=== PATIENT | male | born 1975 | race Caucasian/White ===

== ENCOUNTER 2017-05-31 13:02 | Emergency (ER) | payer SELFPAY ==
[2017-05-31 13:04] VITALS: BP 143/101; PULSE 94; RESP 18; TEMP 98.6; O2SAT 98
[2017-05-31] MEDS ORDERED: SODIUM CHLOR 0.9% 1000 ML INJ 1,000 ML IV ONE (13:45)
[2017-05-31] MEDS ORDERED: MORPHINE SULFATE 4 MG/ML INJ IV PUSH ONE (13:45)
[2017-05-31] MEDS ORDERED: ORPHENADRINE INJ 60 MG/2 ML AMP IM ONE (13:45)
--- NOTE | 2017-05-31 13:59 | PD ---
HPI Chief Complaint: Back/ Neck Pain or Injury Time Seen by Provider: 13:16 Travel History International Travel<30 days: No Contact w/Intl Traveler<30days: No Traveled to known affect area: No History of Present Illness HPI 42-year-old male with PMH of degenerative disc disease presents to the ED for evaluation of 4 day history of 10/10 low back pain. Constant in nature with cramping episodes. Gradual onset. Radiating down the thighs. Accompanied by weakness of the lower extremities. Worsened by certain motions. Patient endorses pins and needles in bilateral feet, weakness and feeling as if his legs will give way. He denies saddle anesthesia or urinary/fecal incontinence. He states that he attempted to have a bowel movement today but the effort to bear down and was too painful. He recently started a new job that requires lifting and bending. He can identify no acute injury. He treated at home with "handfuls" of ibuprofen, Tylenol and "about 15 aspirin" with no improvement of symptoms. He denies any history of IVDA. PFSH Past Medical History Medical History: Denies Significant Hx Past Surgical History Thoracic Surgery: Yes (CHEST TUBE ) Social History Alcohol Use: Yes (OCC) Tobacco Use: Yes Substance Use: No Allergies-Medications (Allergen,Severity, Reaction): Coded Allergies: No Known Allergies (Unverified , 05/31/17) Reported Meds & Prescriptions Reported Meds & Active Scripts Active Ibuprofen 800 Mg Tab 800 Mg PO Q8H PRN Flexeril (Cyclobenzaprine HCl) 10 Mg Tab 10 Mg PO TID Review of Systems Except as stated in HPI: all other systems reviewed are Neg Physical Exam Narrative GENERAL: Well-nourished, well-developed white male in no acute distress. SKIN: Focused skin assessment warm/dry. HEAD: Normocephalic. EYES: No scleral icterus. No injection or drainage. NECK: Supple, trachea midline. No JVD or lymphadenopathy. CARDIOVASCULAR: Regular rate and rhythm without murmurs, gallops, or rubs. RESPIRATORY: Breath sounds equal bilaterally. No accessory muscle use. GASTROINTESTINAL: Abdomen soft, non-tender, nondistended. RECTAL EXAM: No masses or tenderness, stool is brown. Strong rectal tone. MUSCULOSKELETAL: No cyanosis, or edema. NEUROLOGICAL: 5/5 muscle strength of dorsiflexion, plantar flexion, knee and hip flexion bilaterally. Straight leg raise positive bilaterally. Sensation equal to light touch of the BLE distally. BACK: No obvious deformity. Tender to palpation in the midline of the lumbar area. Positive tenderness to palpation of the paraspinal musculature in the lumbar area with active spasming across the back bilaterally. No CVA tenderness. Data Data Last Documented VS Vital Signs Date Time Temp Pulse Resp B/P (MAP) Pulse Ox O2 Delivery O2 Flow Rate FiO2 05/31/17 13:04 98.6 94 18 143/101 (115) 98 Room Air Orders Orders Ct Lumb Spine W/O Contrast (05/31/17 13:35) ^ Insert Iv (05/31/17 13:35) Sodium Chlor 0.9% 1000 Ml Inj (Ns 1000 M (05/31/17 13:45) Orphenadrine Inj (Norflex Inj) (05/31/17 13:45) Morphine Inj (Morphine Inj) (05/31/17 13:45) Mandatory Outpatient Referral (05/31/17 15:48) Ed Discharge Order (05/31/17 15:48) MDM Medical Decision Making Medical Screen Exam Complete: Yes Emergency Medical Condition: Yes Differential Diagnosis Acute exacerbation of low back pain versus radiculopathy versus degenerative disc disease versus cauda equina syndrome versus other Narrative Course 42-year-old male with PMH of degenerative disc disease presents to the ED for evaluation of 4 day history of 10/10 low back pain. Constant in nature with cramping episodes. Radiating down the thighs. Accompanied by weakness of the lower extremities. Patient endorses pins and needles in bilateral feet, weakness and feeling as if his legs will give way. He denies saddle anesthesia or urinary/fecal incontinence. He states that he attempted to have a bowel movement today but the effort to bear down and was too painful. He recently started a new job that requires lifting and bending. He treated at home with "handfuls" of ibuprofen, Tylenol and "about 15 aspirin" with no improvement of symptoms. He denies any history of IVDA. Vitals reviewed. Physical exam reveals midline tenderness to palpation in the lumbar spine as well as the paraspinal musculature bilaterally. Rectal tone is strong. No strength deficit in the bilateral lower extremities. IV was established. Patient was administered 4 mg morphine and 1 L normal saline IV. He was administered [address] of the lumbar spine reveals moderate to large disc protrusion at L4 5. I discussed the results of the workup with the patient. He is noted to ambulate normally to the bathroom. He reports improvement of his symptoms. I placed a mandatory outpatient consult with neurology. I explained this process to the patient. He is prescribed a short course of anti-inflammatories and muscle relaxants, instructed to return to normal, gentle activity as tolerated, follow up as discussed. He indicated understanding of the instructions and is agreeable the care plan. He is stable and discharged home. Diagnosis Primary Impression: Acute exacerbation of chronic low back pain Additional Impressions: Muscle spasm of back Protrusion of lumbar intervertebral disc Referrals: Isael Aparicio MD Patient Instructions: Chronic Back Pain (ED), General Instructions, Lumbar Disc Herniation (ED) Additional Instructions: Rest, hydrate. Return to normal, gentle activity as tolerated. A mixture of rest and activity as best for back pain. Take medications as they're prescribed. A mandatory outpatient consult was placed on your behalf. The neurologist office will be in touch with you in the next week to schedule an appointment. Follow-up with the neurologist. Return to the ED for any urgent or emergent medical condition. Med/Other Pt SpecificInfo: Prescription(s) given Scripts Ibuprofen (Ibuprofen) 800 Mg Tab 800 MG PO Q8H Y for Pain/Inflammation, #15 TAB 0 Refills Prov: Darrian Lang MD 05/31/17 Cyclobenzaprine (Flexeril) 10 Mg Tab 10 MG PO TID for Muscle Spasm, #15 TAB 0 Refills Prov: Darrian Lang MD 05/31/17 Disposition: 01 DISCHARGE HOME Condition: Stable Donna Vasquez May 31, 2017 13:59
--- NOTE | 2017-05-31 15:31 | RADRPT ---
EXAM DATE/TIME: 05/31/2017 15:02 [place] COMPARISON: No previous studies available for comparison. INDICATIONS : Low back pain since Monday, RADIATION DOSE: 35.86 CTDIvol (mGy) MEDICAL HISTORY : None SURGICAL HISTORY : None. ENCOUNTER: Initial ACUITY: 4 - 6 days PAIN SCALE: 8/10 LOCATION: low back TECHNIQUE: Volumetric scanning of the lumbar spine was performed. Multiplanar reconstructions in the sagittal, coronal and oblique axial planes were performed. Using automated exposure control and adjustment of the mA and/or kV according to patient size, radiation dose was kept as low as reasonably achievable t o obtain optimal diagnostic quality images. DICOM format image data is available electronically for review and comparison. FINDINGS: VERTEBRAE: Normal vertebral body height. ALIGNMENT: No evidence of subluxation. T12-L1: The thecal sac has a normal diameter. No evidence of disc bulge or protrusion. The neural foramina are patent bilaterally. L1-L2: The thecal sac has a normal diameter. No evidence of disc bulge or protrusion. The neural foramina are patent bilaterally. L2-L3: The thecal sac has a normal diameter. No evidence of disc bulge or protrusion. The neural foramina are patent bilaterally. L3-L4: The thecal sac has a normal diameter. No evidence of disc bulge or protrusion. The neural foramina are patent bilaterally. L4-L5: Disc space narrowing with mild endplate sclerosis is noted. There is a moderate to large central and right paracentral disc protrusion with significant epidural and right foraminal effacement. L5-S1: The thecal sac has a normal diameter. No evidence of disc bulge or protrusion. The neural foramina are patent bilaterally. CONCLUSION: 1. Moderate to large sized central and right paracentral disc protrusion at L4-5. 2. Mild degenerative changes L4-5. 3. No acute bony abnormality. Wang Sultana MD on May 31, 2017 at 15:18 Board Certified Radiologist. This report was verified electronically.
[2017-05-31] MEDS ORDERED: CYCL10TA PO (15:44)
[2017-05-31] MEDS ORDERED: IBUP1TAB7 PO (15:44)
[2017-05-31] MEDS ORDERED: ACETAMINOPHEN/HYDROcodone 325 MG/10 MG TAB PO ONE (16:15)
[2017-05-31 16:17] VITALS: BP 122/89; PULSE 71; RESP 17; O2SAT 100
== END 2017-05-31 17:48 | disposition home or self-care (01) ==
LOC: NEPC 13:02
DX: M51.26 Other intervertebral disc displacement, lumbar region (principal); G89.29 Other chronic pain; M62.830 Muscle spasm of back; Z72.0 Tobacco use
CPT/HCPCS: 72131; 96360; 96361; 96372; 99285; J2360; J7030

== ENCOUNTER 2017-11-08 11:50 | Emergency (ER) | payer SELFPAY ==
[~2017-11-08] VITALS: Ht 182.9 cm; Wt 90.0 kg
[~2017-11-08 11:50] MED LIST: CYCL10TA PO; IBUP1TAB7 PO
[2017-11-08 11:58] VITALS: BP 137/82; PULSE 75; RESP 18; TEMP 98.3; O2SAT 99
[2017-11-08 12:13] VITALS: BP 140/84; PULSE 82; RESP 18; O2SAT 99
[2017-11-08] MEDS ORDERED: MORPHINE SULFATE 4 MG/ML INJ IV PUSH ONE (12:30)
[2017-11-08] MEDS ORDERED: DEXAMETHASONE SOD PHOS 20 MG/5 ML VIAL IV PUSH ONE (12:30)
--- NOTE | 2017-11-08 13:18 | PD ---
HPI Chief Complaint: Numbness/Tingling Time Seen by Provider: 12:12 Travel History International Travel<30 days: No Contact w/Intl Traveler<30days: No Traveled to known affect area: No History of Present Illness HPI Patient is a 42-year-old male presenting to emerge from for evaluation of back pain. Patient states he has a chronic history of the same however for the last 3-4 days the pain has gotten worse, he reports that when he got out of bed this morning his legs gave out and he fell to the floor. He then reported that he got off the wrong. While coming to the hospital and while he was attempting to walk here his legs gave out once again. He reports the pain is constant, he describes it as pins and needles, sharp and radiating down his legs. The pain is a 6 out of 10. Patient states he has been taking 10 acetaminophen tablets, he then clarified that he was not taking them all at once. These do not help his pain. He denies any bladder or bowel incontinence, no saddle paresthesia. He further denies any IV drug use but states he took his friend's methadone which helped his pain significantly. [facility] Past Medical History Medical other: Yes (chronic back pain) Tetanus Vaccination: Unknown Influenza Vaccination: No ?: Not Past Surgical History Thoracic Surgery: Yes (CHEST TUBE ) Tonsillectomy: Yes Social History Alcohol Use: Yes ([facility]) Tobacco Use: Yes Substance Use: No Allergies-Medications (Allergen,Severity, Reaction): Coded Allergies: No Known Allergies (Unverified , 11/08/17) Reported Meds & Prescriptions Reported Meds & Active Scripts Active Review of Systems Except as stated in HPI: all other systems reviewed are Neg HENT: No: Headaches Cardiovascular: No: Chest Pain or Discomfort Respiratory: No: Shortness of Breath Genitourinary: No: Incontinence Musculoskeletal: Positive: Pain Neurologic: Positive: Paresthesia, Sensory Disturbance, No: Focal Abnormalities Physical Exam Narrative GENERAL: Well-developed, well-nourished, alert male. Presenting in no acute distress. SKIN: Warm and dry. HEAD: Atraumatic. Normocephalic. EYES: Pupils equal and round. No scleral icterus. No injection or drainage. ENT: No nasal bleeding or discharge. Mucous membranes pink and moist. NECK: Trachea midline. No JVD. CARDIOVASCULAR: Regular rate and rhythm. RESPIRATORY: No accessory muscle use. Clear to auscultation. Breath sounds equal bilaterally. GASTROINTESTINAL: Abdomen soft, non-tender, nondistended. Hepatic and splenic margins not palpable. MUSCULOSKELETAL: Extremities without clubbing, cyanosis, or edema. No obvious deformities. Mild tenderness to palpation to lower lumbar spine and paraspinal musculature bilaterally. NEUROLOGICAL: Awake and alert. No obvious cranial nerve deficits. Motor grossly within normal limits. Five out of 5 muscle strength in the arms and legs. Normal speech. Bilateral leg lift elicits pain in the lower back. PSYCHIATRIC: Appropriate mood and affect; insight and judgment normal. Data Data Last Documented VS Vital Signs Date Time Temp Pulse Resp B/P (MAP) Pulse Ox O2 Delivery O2 Flow Rate FiO2 11/08/17 12:13 82 18 140/84 (102) 99 Room Air 11/08/17 11:58 98.3 Orders Orders Mri L Spine W/O Contrast (11/08/17 ) Mri T Spine W/O Contrast (11/08/17 ) Iv Access Insert/Monitor (11/08/17 12:19) Dexamethasone Inj (Decadron Inj) (11/08/17 12:30) Morphine Inj (Morphine Inj) (11/08/17 12:30) MDM Medical Decision Making Medical Screen Exam Complete: Yes Emergency Medical Condition: Yes Medical Record Reviewed: Yes Interpretation(s) Last Impressions Thoracic Spine MRI 11/08/17 0000 Signed Impressions: CONCLUSION: 1. Unremarkable exam. Lumbar Spine MRI 11/08/17 0000 Signed Impressions: CONCLUSION: 1. Right posterior lateral protrusion at L4-L5 with potential right L5 and rig ht L4 neural impingement. Vital Signs Date Time Temp Pulse Resp B/P (MAP) Pulse Ox O2 Delivery O2 Flow Rate FiO2 11/08/17 12:13 82 18 140/84 (102) 99 Room Air 11/08/17 11:58 98.3 75 18 137/82 (100) 99 Differential Diagnosis Muscle strain versus muscle spasm versus radiculopathy versus degenerative disc disease versus discitis versus other Narrative Course Patient is a 42-year-old male presenting to the emergency department for evaluation of back pain. He denies any IV drug use but has been using methadone which he received from his friend. At this point we will obtain MRIs of the thoracic and lumbar spine to rule out discitis. Medical records reviewed , patient had a CT scan of the lumbar spine in May 2017 that showed moderate to large sized central and right paracentral disc protrusion at L4-L5, mild degenerative changes at L4-L5. Patient's vital signs are stable, he was given medication for his pain. IV access established. MRI of the thoracic spine is negative for acute abnormality MRI of the lumbar spine right posterior lateral protrusion at L4-L5 with potential right L5 and right L4 neural impingement. A mandatory referral will be made to neurosurgery. Patient will be discharged home at this time. He was encouraged return to emergency department any new or worsening symptoms. Patient was given a short course of steroids and anti- inflammatory medication. He was encouraged to continue range of motion exercises, avoid exacerbating activities and avoid bed rest. Patient was advised on findings as well as plan of care. Plan of care was discussed with my attending physician. Diagnosis Primary Impression: Lumbar disc herniation with radiculopathy Referrals: [facility] Neurosurgeon A mandatory referral has been made for you. You will be contacted by the hospital. Patient Instructions: General Instructions, Lumbar Disc Herniation (ED) Additional Instructions: Follow-up at the [facility] on [facility]. If you call at 8 AM in the morning they have 12 open appointments for walk-ins a day. Take medication as directed Avoid taking someone else's medications to avoid adverse effects Follow-up with neurosurgery, a mandatory referral has been made for you Return to emergency department for any new or worsening symptoms Avoid exacerbating activities, avoid bed rest, continue gentle range of motion exercises, apply warm heat to the affected area. Med/Other Pt SpecificInfo: Prescription(s) given Scripts Prednisone (Prednisone) 50 Mg Tab 50 MG PO DAILY for 5 Days, #5 TAB 0 Refills Prov: Fadia Linares 11/08/17 Ketorolac (Ketorolac) 10 Mg Tab 10 MG PO TID Y for Pain Management, #30 TAB 0 Refills Prov: Fadia Linares 11/08/17 Disposition: 01 DISCHARGE HOME Condition: Stable Fadia Lianres Nov 08, 2017 13:18
--- NOTE | 2017-11-08 13:55 | RADRPT ---
EXAM DATE: 11/08/2017 1:41 PM EDT AGE/SEX: 42 years / Male INDICATIONS: . Back pain with numbness in feet. CLINICAL DATA: This is the patient's initial encounter. Patient reports that signs and symptoms have been present for 1 day and indicates a pain score of 5/10. MEDICAL/SURGICAL HISTORY: None. None. COMPARISON: No prior [facility] exams available for comparison. TECHNIQUE: Multiplanar, multisequence MRI of the lumbar spine was performed without contrast. Patie nt was scanned in a sitting position; neutral, flexion, and extension scans were performed in the sa gittal plane. FINDINGS: Vertebra: Homogeneous signal. Normal alignment. Conus: Normal level and configuration. T12-L1: The thecal sac has a normal diameter. No evidence of disc bulge or protrusion. The neural foramina are patent bilaterally. L1-L2: The thecal sac has a normal diameter. No evidence of disc bulge or protrusion. The neural foramina are patent bilaterally. L2-L3: The thecal sac has a normal diameter. No evidence of disc bulge or protrusion. The neural foramina are patent bilaterally. L3-L4: The thecal sac has a normal diameter. No evidence of disc bulge or protrusion. The neural foramina are patent bilaterally. L4-L5: There is disc desiccation without disc space narrowing. No bulge or protrusion. Central [place] l, lateral recesses, and neural foramen are patent. L5-S1: Disc space narrowing and disc desiccation with a right posterior lateral protrusion totally effaces the right lateral recess and extends into the medial portion of the right neural foramen just touching the right L4 nerve root. Left lateral recess shows mild narrowing. Central canal shows mode rate narrowing with the anterior to posterior dimension of the central canal in the midline measuring 7 mm. CONCLUSION: 1. Right posterior lateral protrusion at L4-L5 with potential right L5 and right L4 neural impingeme nt. Electronically signed by: Bk Roche MD 11/08/2017 1:53 PM EDT
--- NOTE | 2017-11-08 14:13 | RADRPT ---
EXAM DATE: 11/08/2017 1:54 PM EDT AGE/SEX: 42 years / Male INDICATIONS: . Back pain with numbness in feet. CLINICAL DATA: This is the patient's initial encounter. Patient reports that signs and symptoms have been present for 1 day and indicates a pain score of 4/10. MEDICAL/SURGICAL HISTORY: None. None. COMPARISON: No prior [facility] exams available for comparison. TECHNIQUE: Multiplanar, multisequence MRI of the thoracic spine was performed. FINDINGS: Vertebrae: Normal vertebral body height. Homogeneous marrow signal. Alignment: Normal. Cord: Normal position and configuration. T1-T2: The thecal sac has a normal diameter. No evidence of disc bulge or protrusion. T2-T3: The thecal sac has a normal diameter. No evidence of disc bulge or protrusion. T3-T4: The thecal sac has a normal diameter. No evidence of disc bulge or protrusion. T4-T5: The thecal sac has a normal diameter. No evidence of disc bulge or protrusion. T5-T6: The thecal sac has a normal diameter. No evidence of disc bulge or protrusion. T6-T7: The thecal sac has a normal diameter. No evidence of disc bulge or protrusion. T7-T8: The thecal sac has a normal diameter. No evidence of disc bulge or protrusion. T8-T9: There is a minimal right paracentral disc bulge. No abutment of the cord or central canal nate nosis.. T9-T10: The thecal sac has a normal diameter. No evidence of disc bulge or protrusion. T10-T11: The thecal sac has a normal diameter. No evidence of disc bulge or protrusion. T11-T12: The thecal sac has a normal diameter. No evidence of disc bulge or protrusion. T12-L1: The thecal sac has a normal diameter. No evidence of disc bulge or protrusion. CONCLUSION: 1. Unremarkable exam. Electronically signed by: Bk Roche MD 11/08/2017 2:12 PM EDT
[2017-11-08] MEDS ORDERED: KETO10 PO (14:24)
[2017-11-08] MEDS ORDERED: PRED50 PO (14:24)
--- NOTE | 2017-11-08 14:27 | PD ---
Physical Exam Date Seen by Provider: Nov 08, 2017 Time Seen by Provider: 13:30 Narrative I, Dr. Conner, have reviewed the advance practice practitioner's documentation and am in agreement, met with the patient face to face, made the diagnosis, and the medical decision making was done by me. *My assessment and Findings: Patient seen and evaluated with PA, please see PA notes for further details. Here complaining of back pain which she has been seen for before, complaining of numbness in the legs, but no incontinence or other symptoms. Questionable history of drug use. MRI was ordered for further evaluation, shows disc protrusion at L4-5 with some right sided neuronal impingement. However, these findings are moderate and did not show any signs more significant stenoses. At this point, symptoms going on for some time and findings were seen previously on CAT scan as well. Plan at this point would be to release the patient would follow-up to transition specialist for further evaluation. Return for any worse's. Plan has been discussed with the patient and he states understanding. Last 24 hours Impressions Thoracic Spine MRI 11/08/17 0000 Signed Impressions: CONCLUSION: 1. Unremarkable exam. Lumbar Spine MRI 11/08/17 0000 Signed Impressions: CONCLUSION: 1. Right posterior lateral protrusion at L4-L5 with potential right L5 and rig ht L4 neural impingement. Data Data Last Documented VS Vital Signs Date Time Temp Pulse Resp B/P (MAP) Pulse Ox O2 Delivery O2 Flow Rate FiO2 11/08/17 12:13 82 18 140/84 (102) 99 Room Air 11/08/17 11:58 98.3 Orders Orders Mri L Spine W/O Contrast (11/08/17 ) Mri T Spine W/O Contrast (11/08/17 ) Iv Access Insert/Monitor (11/08/17 12:19) Dexamethasone Inj (Decadron Inj) (11/08/17 12:30) Morphine Inj (Morphine Inj) (11/08/17 12:30) Ed Discharge Order (11/08/17 14:21) Mandatory Outpatient Referral (11/08/17 14:22) [facility] Medical Record Reviewed: Yes Supervised Visit with JOSIAH: Yes Diagnosis Primary Impression: Lumbar disc herniation with radiculopathy Disposition: 01 DISCHARGE HOME Condition: Stable Kiana Conner MD Nov 08, 2017 14:26
== END 2017-11-08 14:52 | disposition home or self-care (01) ==
LOC: NEPC 11:50
DX: M51.16 Intervertebral disc disorders with radiculopathy, lumbar region (principal); Z72.0 Tobacco use
CPT/HCPCS: 72146; 72148; 96374; 96375; 99285; J1100; J2270